=== PATIENT | female | born 1990 | race Caucasian/White ===

== ENCOUNTER 2018-07-20 04:48 | Inpatient (IN) ==
[2018-07-20] MEDS: RINGER'S SOLUTION,LACTATED 1,000 ML IV PRN ×2 (05:24→06:24)
[2018-07-20] MEDS ORDERED: ceFAZolin SODIUM/DEXTROSE,ISO 2 GM/50 ML BAG IV ONE ×2 (06:00→07:15)
[2018-07-20] MEDS ORDERED: OXYTOCIN 20 UNITS in RINGER'S SOLUTION,LACTATED 1,000 ML IV ONE ×2 (06:00→09:02)
[2018-07-20 06:38] LABS: Cocaine Ur Negative (NEGATIVE); Urine Barbiturate Negative (NEGATIVE); Urine Benzodiazepines Negative (NEGATIVE); Urine Opiates Negative (NEGATIVE); Urine PCP Negative (NEGATIVE)
[2018-07-20 06:40] LABS: Urine THC Positive (NEGATIVE)
--- NOTE | 2018-07-20 07:29 | ANES ---
Anesthesia Pre Procedure Eval Vitals/Labs: Last Vital Signs Temp 37.2 C 07/20/18 06:44 Pulse 82 07/20/18 06:44 Resp 18 07/20/18 06:44 BP 115/71 07/20/18 06:44 Pulse Ox 98 07/20/18 06:44 HOME MEDICATIONS fluoxetine 20 mg capsule 60 mg PO DAILY #90 cap 06/10/18 [Last Taken 07/19/18 09:00] hydrocodone 5 mg-acetaminophen 325 mg tablet 1 tab PO Q6H PRN #14 tab 07/15/18 [Last Taken Unknown] Allergies/Adverse Reactions: Allergies Allergy/AdvReac Type Severity Reaction Status Date / Time No Known Drug Allergies Allergy Verified 07/20/18 05:21 - Planned Procedure Planned Procedure: Repeat with Bilateral Salpingectomy Medication List Reviewed:: Yes Allergies Verified: Yes Medical History (Last Reviewed 07/20/18 @ 07:28 by Srikanth Jefferson CRNA) Currently Onset Date: 12/25/17 Anxiety Onset Date: Unknown Depression Onset Date: Unknown Pit[place] teeth extracted Onset Date: Unknown Surgical History (Last Reviewed 07/20/18 @ 07:28 by Srikanth Jefferson CRNA) History of tonsillectomy Onset Date: Unknown Intussusception of intestine Onset Date: Unknown with surgical repair Previous section Onset Date: Unknown Family History (Last Reviewed 07/20/18 @ 07:28 by Srikanth Jefferson CRNA) Father Alive and well Mother Alive and well - Family Anesthesia History Family History:: no untoward family reactions to anesthesia - Airway/Neck/Teeth Within Normal Limits:: Yes Teeth Condition: Intact Neck Exam: full range of motion, normal inspection Mallampatti Score: 2 Thyromental (T-M) distance: > 6 cm Mandibulo Hyoid distance: > 3 cm - Respiratory Respiratory: lungs clear Smoking Status: Never smoker Sleep Apnea currently treated: No Sleep Apnea by current assessment: No - Cardiovascular Patient History - Cardiac/Respiratory: No pertinent hx Tolerates Activity: Good Heart Sounds: S1 & S2, Regular - Anesthesia Assessment and Plan ASA Class: PS, II Anesthesia Type Plan: Spinal - TAP block for postop analgesia
[2018-07-20] MEDS ORDERED: SIMETHICONE 80 MG TAB.CHEW PO PRN (09:02)
[2018-07-20] MEDS ORDERED: diphenhydrAMINE HCL 25 MG CAPSULE PO PRN (09:02)
[2018-07-20] MEDS ORDERED: BISACODYL 10 MG SUPP.RECT RC PRN (09:02)
[2018-07-20] MEDS ORDERED: ONDANSETRON HCL/PF 2 MG/ML VIAL IV PRN (09:02)
[2018-07-20] MEDS ORDERED: RINGER'S SOLUTION,LACTATED 1,000 ML IV ONE (09:02)
[2018-07-20] MEDS ORDERED: SENNOSIDES 8.6 MG TABLET PO PRN (09:02)
--- NOTE | 2018-07-20 09:20 | ANES ---
Post Anesthesia Discharge - Transfer of Care Transfer of Care handoff given to nurse: Yes - Discharge from PACU Discharge from PACU when meets criteria: Yes
--- NOTE | 2018-07-20 09:32 | OR ---
Operative Report - Dictated Report Narrative: Date of delivery: 07/20/2018 Time of delivery: 809 Gender: male weight: 3251bgrams APGARS: 9/9 Preoperative diagnosis: history of delivery, desires sterilization Postoperative diagnosis: same Procedure: repeat delivery, bilateral salpingectomy, lysis of adhesions Anesthesia: spinal Anesthesiologist: Charlie Jefferson CRNA Indications for the procedure: The patient presents for repeat delivery and tubal ligation. All risks, benefits, and alternatives of the procedure were explained to the patient and the patient consented to the procedure. Description of the procedure: The patient was taken to the operating room where spinal anesthesia was induced. She was then prepped and draped in the supine position in the standard surgical fashion. Attention was then turned to the abdomen. A Pfannestiel skin incision was made. The incision was carried through the subcutaneous tissue. The fascia was incised in the midline. The fascia was dissected off the underlying rectus muscles. The rectus muscles were in the midline. The peritoneum was entered bluntly. A large Delfin-O retractor was placed in the abdomen. The lower uterine segment was incised in a transverse fashion. The membranes were ruptured and the amniotic fluid was clear. The head was delivered atraumatically. The rest of the was delivered atraumatically and handed off to the attending pediatric staff. The uterus was cleared of all clots and debris. The uterine incision was closed with interlocking 0-vicryl suture. The uterine incision was hemostatic. The left fallopian tube was identified by following it to the fimbriated end. The left fallopian tube was resected by cutting along the mesosalpinx with the small handheld Ligasure. The right fallopian tube fimbriated end was not identified. The resection was started at the cornual region and followed until the end of the fallopian tube. Small bowel adhesions to the left fallopian tube were noted and these were taken down. The right round ligament was followed all the way to the pelvic side wall and again the fimbriated end of the right fallopian tube was not identified. This is consistent with prior partial resection of which the patient is not aware. Hemostasis was adequate. The rectus muscles were examined and appeared hemostatic. The fascia was closed with 1-0 vicryl. The subcutaneous tissue was closed with 2-0 vicryl. The skin was closed with 3-0 monocryl on a Jacob needle. Dermabond was placed over the skin incision. All sponge, lap, and needle counts were correct. The patient tolerated the procedure well. She was transferred to the recovery room in stable condition. EBL: 1000 mL Complications: none Specimens: fallopian tubes
[2018-07-20] MEDS: KETOROLAC TROMETHAMINE 30 MG/ML VIAL IV PRN ×3 (09:40→22:50)
--- NOTE | 2018-07-20 11:02 | ANES ---
Post Anesthesia Assessment - Vital Signs Vitals: Last Vital Signs Temp 36 C 07/20/18 10:45 Pulse 88 07/20/18 10:45 Resp 16 07/20/18 10:45 BP 119/66 07/20/18 10:45 Pulse Ox 100 07/20/18 10:45 Airway Patency: Normal - Mental Status Level Of Consciousness: Awake - Pain Level Pain Score: 4 - N/V Assessment Nausea/Vomiting Presence: None Dehydration:: No
--- NOTE | 2018-07-20 11:18 | ANES ---
Anesthesia Procedure Note Procedure Note: ANESTHESIA PROCEDURE NOTE Date of procedure:[]. 07 20 2018 Time of procedure:[]. Performed by: Charlie Jefferson CRNA Flower Planter: [] Shannan Naik RN . Preprocedure diagnosis: []. Desire for post analgesia. Post procedure diagnosis: Same. Procedure:[] Bilateral ultrasound-guided tap block. Indications: []. The post operative analgesia Findings: [] Patient placed in a supine position in the PACU. Patient's right abdominal wall was prepped with ChloraPrep. Ultrasound was utilized to identify fascial layer between the internal oblique and trans-abdominus muscles. A 20- gauge 4 inch regional block needle was advanced under ultrasound guidance until tip of needle was positioned just posterior to fascial layer. 20 mL of 0.25% Marcaine with epinephrine 1 200,000 was injected with adequate spread of local anesthesia noted. Procedure was repeated on the patient's left side. EBL: Minimal. Fluids: N/A. Specimen: N/A. Post procedure condition: The patient tolerated the procedure well. No complications were noted. Thank you for this consultation Charlie Jefferson CRNA
[2018-07-20] MEDS: oxyCODONE HCL/ACETAMINOPHEN 1 TAB TABLET PO PRN ×3 (11:24→20:04)
[2018-07-20] MEDS: DOCUSATE SODIUM 100 MG CAPSULE PO SCH (20:04)
[2018-07-21] MEDS: oxyCODONE HCL/ACETAMINOPHEN 1 TAB TABLET PO PRN ×3 (06:34→17:06)
[2018-07-21] MEDS: KETOROLAC TROMETHAMINE 30 MG/ML VIAL IV PRN (06:34)
--- NOTE | 2018-07-21 10:34 | PN ---
Subjective - Date and Time Seen Date: 07/21/18 Time: 10:32 Subjective Narrative: Pt without complaints Objective Objective Narrative: See vital signs - Review of Systems Generalized/Overall Review: Reports: No Symptoms Reported Misc: All systems neg except as marked - Vitals Vitals: Last Vital Signs Temp 36.3 C 07/21/18 06:30 Pulse 76 07/21/18 06:30 Resp 18 07/21/18 06:30 BP 132/70 07/21/18 06:30 Pulse Ox 97 07/21/18 06:30 - Exam Constitutional: Present: Alert, Oriented x3, Cooperative, No distress Abdomen: Present: soft, nontender, nondistended - incision c/d/i Extremity: Present: non-tender, no calf tenderness Skin Exam: Present: normal color, warm/dry, no cyanosis Appearance: Present: appropriate appearance Eye contact: Present: cooperative Thoughts: Present: normal thought pattern Cauti Physician Documentation - Urinary Catheter Management Urethral (Gonzalez) Urethral Indwelling: No Date of Insertion: 07/20/18 Time of Insertion: 07:55 Date of Removal: 07/20/18 Time of Removal: 20:00 Assessment/Plan Plan Narrative: POD 1 s/p delivery Doing well Discharge POD 3
[2018-07-21] MEDS: DOCUSATE SODIUM 100 MG CAPSULE PO SCH (11:25)
[2018-07-21] MEDS: IBUPROFEN 800 MG TABLET PO PRN (17:06)
[2018-07-22] MEDS: IBUPROFEN 800 MG TABLET PO PRN ×3 (01:18→17:33)
[2018-07-22] MEDS: oxyCODONE HCL/ACETAMINOPHEN 1 TAB TABLET PO PRN ×4 (01:18→17:33)
[2018-07-22] MEDS: DOCUSATE SODIUM 100 MG CAPSULE PO SCH ×2 (01:18→08:35)
[2018-07-22] MEDS ORDERED: FLUoxetine HCL 20 MG CAPSULE PO SCH (09:15)
--- NOTE | 2018-07-22 09:18 | PN ---
Subjective - Date and Time Seen Date: 07/22/18 Time: 09:16 Subjective Narrative: Pt without complaints Objective Objective Narrative: See vital signs - Review of Systems Generalized/Overall Review: Reports: No Symptoms Reported Misc: All systems neg except as marked - Vitals Vitals: Last Vital Signs Temp 37.0 C 07/21/18 10:05 Pulse 76 07/22/18 01:15 Resp 16 07/22/18 01:15 BP 114/61 07/22/18 01:15 Pulse Ox 99 07/22/18 01:15 - Exam Constitutional: Present: Alert, Oriented x3, Cooperative, No distress Abdomen: Present: soft, nontender, nondistended - incision c/d/i Extremity: Present: non-tender, no calf tenderness Skin Exam: Present: normal color, warm/dry, no cyanosis Appearance: Present: appropriate appearance Eye contact: Present: cooperative Thoughts: Present: normal thought pattern Cauti Physician Documentation - Urinary Catheter Management Urethral (Gonzalez) Urethral Indwelling: No Date of Insertion: 07/20/18 Time of Insertion: 07:55 Date of Removal: 07/20/18 Time of Removal: 20:00 Assessment/Plan Plan Narrative: POD 2 s/p delivery Doing well Prozac restarted today Discharge tomorrow
[2018-07-22 11:14] VITALS: BP 122/79
--- NOTE | 2018-07-22 11:56 | PN ---
Onofre Note - Interim Date: 07/22/18 Time: 11:56 Narrative: 07/22/18 11:56 Called by RN that the patient's baby is being transferred to [place]. Will discharge the patient since she is stable for discharge.
== END 2018-07-22 19:00 | disposition home or self-care (01) | DRG 785 ==
LOC: OB 04:48
PROVIDERS: ADMIT Obstetrics & Gynecology; ATTEND Obstetrics & Gynecology
CPT/HCPCS: 59025; 80307; 86850; 86900; 88302; G0479